=== PATIENT | male | born 1975 | race Caucasian/White ===

== ENCOUNTER 2025-02-23 00:42 | Outpatient (CLI) | payer BC, SELFPAY ==
[2025-02-23 14:51] LABS: Hemoglobin A1C 5.6 % (<5.7)
[2025-02-23 14:52] LABS: Anion Gap 9.6 mmol/L (3-11); BUN 14 mg/dL (7-18); CO2 27.4 mmol/L (21.0-32.0); Calcium 9.5 mg/dL (8.5-10.1); Calculated LDL 165 mg/dL (<100); Chloride 102 mmol/L (98-107); Cholesterol 240 mg/dL (<200); Estimated GFR 81.78 (mL/min/1.73m2); Glucose 109 mg/dL (74-106); HDL Cholesterol 43 mg/dL (>or=40); Potassium 4.8 mmol/L (3.5-5.1); Sodium 139 mmol/L (136-145); Triglyceride 162 mg/dL (<150)
== END 2025-02-23 00:43 | disposition home or self-care (01) ==
LOC: LOS 00:42
PROVIDERS: PCP Nurse Practitioner Family; Visit Provider Nurse Practitioner Family
DX: Z13.220 Encounter for screening for lipoid disorders (principal); I10 Essential (primary) hypertension; Z13.1 Encounter for screening for diabetes mellitus
CPT/HCPCS: 36415; 80048; 80061; 83036